=== PATIENT | male | born 1995 | race Caucasian/White ===

== ENCOUNTER 2017-01-28 14:36 | Emergency (ER) | payer MEDICAID ==
[2017-01-28 15:22] VITALS: BP 139/68
[2017-01-28] MEDS ORDERED: Ketorolac INJ* 30 MG/ML 1 ML VIAL IM ONE (16:17)
--- NOTE | 2017-01-28 16:43 | UC ---
Knee Pain HPI - HPI Summary HPI Summary: knee pain that began after a run, 2 weeks ago, has gotten worse with use, now has constant pain, hard to bear weight. some pain in the arch of his left foot with weight bearing. - History of Current Complaint Chief Complaint: UCLowerExtremity Stated Complaint: KNEE PAIN Time Seen by Provider: 01/28/17 16:03 Hx Obtained From: Patient Onset/Duration: Sudden Onset, Lasting Days Severity Initially: Mild Severity Currently: Severe Pain Intensity: 8 Pain Scale Used: 0-10 Numeric Character: Sharp - with movement, Dull, Stiffness Aggravating Factor(s): Movement, Weight Bearing, Prolonged Standing, Stairs Alleviating Factor(s): Nothing Associated Signs And Symptoms: Positive: Negative Able to Bear Weight: Yes - with pain - Allergies/Home Medications Allergies/Adverse Reactions: Allergies Allergy/AdvReac Type Severity Reaction Status Date / Time seafood Allergy Intermediate GI Upset Uncoded 01/28/17 15:23 PMH/Surg Hx/FS Hx/Imm Hx Previously Healthy: Yes Endocrine History Of: Denies: Diabetes, Thyroid Disease, Hyperthyroidism, Hypothyroidism Cardiovascular History Of: Denies: Cardiac Disorders, Hypertension, Pacemaker/ICD Respiratory History Of: Denies: COPD, Asthma GI/ History Of: Denies: Ulcer Neurological History Of: Denies: TIA, Seizures Psychological History Of: Denies: Anxiety, Depression - Surgical History Surgical History: Yes Surgery Procedure, Year, and Place: RE CIRCUMCISION AGE 5 - Family History Known Family History: Positive: Hypertension - Social History Alcohol Use: Rare Substance Use Type: None Smoking Status (MU): Never Smoked Tobacco - Immunization History Vaccination Up to Date: Yes Review of Systems Constitutional: Negative Skin: Negative Eyes: Negative ENT: Negative Respiratory: Negative Cardiovascular: Negative Gastrointestinal: Negative Genitourinary: Negative Motor: Negative Neurovascular: Negative Musculoskeletal: Arthralgia, Decreased ROM, Myalgia Neurological: Negative Psychological: Negative All Other Systems Reviewed And Are Negative: Yes Physical Exam Triage Information Reviewed: Yes Appearance: Well-Appearing, Well-Nourished, Pain Distress Vital Signs: Initial Vital Signs Temp 98.8 F 01/28/17 15:15 Pulse 57 01/28/17 15:15 Resp 16 01/28/17 15:15 BP 139/68 01/28/17 15:15 Pulse Ox 100 02/27/17 15:15 Vital Signs Reviewed: Yes Eye Exam: Normal Eyes: Positive: Conjunctiva Clear ENT Exam: Normal ENT: Positive: Normal ENT inspection, Hearing grossly normal, Pharynx normal, TMs normal Dental Exam: Normal Neck exam: Normal Neck: Positive: Supple, Nontender, No Lymphadenopathy Respiratory Exam: Normal Respiratory: Positive: Chest non-tender, Lungs clear, Normal breath sounds Cardiovascular Exam: Normal Cardiovascular: Positive: RRR, No Murmur Abdominal Exam: Normal Abdomen Description: Positive: Nontender, No Organomegaly, Soft Bowel Sounds: Positive: Present Musculoskeletal: Positive: Strength Limited @ - in left knee, cant bear full weight, ROM Limited @ - in flex and ext of left knee, Edema @ - no effusion noted, no bruising, Pos Mc murrays on medial joint line, - lachmans Neurological Exam: Normal Neurological: Positive: Alert, Muscle Tone Normal Psychological Exam: Normal Skin Exam: Normal Knee Pain Course/Dx - Course Course Of Treatment: hx obtained, exam performed, toradol given for pain, xray obtained neg exam. knee immobilizer placed, recommend follow up with ortho if pain persists over 1 week. - Differential Dx/Diagnosis Differential Diagnosis/HQI/PQRI: Contusion, Dislocation, Internal Derangement Of Knee, Infection, Patellofemoral Syndrome, Sprain, Strain Provider Diagnoses: Knee pain. mid foot sprain. abnormal gait Discharge - Discharge Plan Condition: Stable Disposition: HOME Patient Education Materials: Knee Pain (ED) Referrals: No Primary Care Phys,NOPCP [Primary Care Provider] - Keyanna Mccann MD [Medical Doctor] - Additional Instructions: Use the knee immobilizer, continue with Ice or heat, which ever feels better, rest the knee for the next week, no running or lifting. FOllow up with Dr Mccann if pain is still persistant.
--- NOTE | 2017-01-28 17:15 | RAD ---
Indication: Anterior and medial LEFT knee pain. Previous contralateral MCL tear. Comparison: No relevant prior exams available on the [facility]. Technique: AP, tunnel, lateral, sunrise views LEFT knee. Report: Negative for joint effusion, fracture, malalignment, joint space narrowing, or soft tissue contour abnormality. IMPRESSION: Negative radiographic exam of the LEFT knee.
== END 2017-01-28 17:28 | disposition home or self-care (01) ==
LOC: UCEAST 14:36
DX: M25.562 Pain in left knee (principal); S93.602A Unspecified sprain of left foot, initial encounter; X58.XXXA Exposure to other specified factors, initial encounter; Y93.9 Activity, unspecified; Y92.9 Unspecified place or not applicable; R26.9 Unspecified abnormalities of gait and mobility
CPT/HCPCS: 96372; 99212; G0463; J1885